=== PATIENT | male | born 1995 | race Caucasian/White ===

== ENCOUNTER 2020-12-29 14:27 | Emergency (ER) | payer OTHER ==
--- NOTE | 2020-12-29 15:25 | EDM.PDOC ---
ED HPI GENERAL MEDICAL PROBLEM - General Chief Complaint: Upper Extremity Injury/Pain Stated Complaint: ALCANTAR MUSCLE INJURY Time Seen by Provider: 12/29/20 15:00 Source of Information: Reports: Patient History Limitations: Reports: No Limitations - History of Present Illness INITIAL COMMENTS - FREE TEXT/NARRATIVE: The patient presents with right upper chest pain. He was working out at the [employer] bench pressing and he felt pain to the right chest with weakness. He thinks he may have torn his right pectoral muscle. He has no other injury. He has not been on any medications such as cipro or levaquin. He did get his COVID shot a few weeks ago. 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 [No Known Home Meds] 12/29/20 [History] Past Medical History Musculoskeletal History: Reports: Other (See Below) Other Musculoskeletal History: left wrist surgery - Past Surgical History HEENT Surgical History: Reports: Adenoidectomy, Tonsillectomy Social & Family History - Tobacco Use Tobacco Use Status *Q: Never Tobacco User - Caffeine Use Caffeine Use: Reports: Coffee, Energy Drinks, Soda, Tea - Recreational Drug Use Recreational Drug Use: No Review of Systems - Review of Systems Review Of Systems: See Below Constitutional: Reports: No Symptoms Eyes: Reports: No Symptoms Ears: Reports: No Symptoms Nose: Reports: No Symptoms Mouth/Throat: Reports: No Symptoms Respiratory: Reports: No Symptoms Cardiovascular: Reports: Chest Pain GI/Abdominal: Reports: No Symptoms Genitourinary: Reports: No Symptoms ED EXAM, GENERAL - Physical Exam Exam: See Below Exam Limited By: No Limitations General Appearance: Alert, No Apparent Distress Ears: Normal External Exam Nose: Normal Inspection Head: Atraumatic, Normocephalic Neck: Normal Inspection Respiratory/Chest: No Respiratory Distress, Lungs Clear, Normal Breath Sounds Cardiovascular: Regular Rate, Rhythm, No Edema, No Murmur GI/Abdominal: Soft, Non-Tender, No Organomegaly, No Mass Extremities: Other (pain upon palpation to the right upper chest and shoulder with a deficit where the pectoralis inserts.) Course - Vital Signs Last Recorded V/S: Last Vital Signs Temp 98.0 F 12/29/20 14:43 Pulse 62 12/29/20 14:43 Resp 20 12/29/20 14:43 BP 135/72 12/29/20 14:43 Pulse Ox 98 12/29/20 14:43 - Re-Assessments/Exams Free Text/Narrative Re-Assessment/Exam: 12/29/20 15:29 I feel he did tear his pectoralis muscle. I will order an outpatient MRI and follow up with Dr White. Departure - Departure Time of Disposition: 15:30 Disposition: Home, Self-Care 01 Condition: Good Clinical Impression: Pectoralis muscle rupture Qualifiers: Encounter type: initial encounter Qualified Code(s): S29.011A - Strain of muscle and tendon of front wall of thorax, initial encounter - Discharge Information *PRESCRIPTION DRUG MONITORING PROGRAM REVIEWED*: Not Applicable *COPY OF PRESCRIPTION DRUG MONITORING REPORT IN PATIENT MING: Not Applicable Referrals: PCP,None [Primary Care Provider] - Anjum White MD [Physician] - 1 Week Additional Instructions: Ice your chest for 15 minutes 3 times per day for 2 days. Take tylenol or motrin for pain. Wear the sling to support your shoulder and to avoid further injury. Follow up with Dr White this week. Someone from our radiology department will call you with a time for an MRI. Sepsis Event Note (ED) - Evaluation Sepsis Screening Result: No Definite Risk - Focused Exam Vital Signs: Vital Signs Temp Pulse Resp BP Pulse Ox 12/29/20 14:43 98.0 F 62 20 135/72 98
== END 2020-12-29 15:40 | disposition home or self-care (01) ==
LOC: JD.ED 14:27
DX: S29.011A Strain of muscle and tendon of front wall of thorax, initial encounter (principal); X50.1XXA Overexertion from prolonged static or awkward postures, initial encounter
CPT/HCPCS: 99282; 99283